=== PATIENT | female | born 1985 | race Caucasian/White ===

== ENCOUNTER → 2021-05-20 12:45 | Outpatient (CLI) | payer BC, SELFPAY ==
--- NOTE | ~2021-05-20 | MR_ITS ---
EXAMINATION: MR ankle RT wo con DATE: 05/20/2021 13:57 INDICATION: Right ankle pain. TECHNIQUE: Magnetic resonance imaging (MRI) of the right ankle was performed without intravenous cont rast. Sequences included sagittal PD-weighted FS FSE, sagittal PD-weighted FSE, coronal PD-weighted F S FSE, coronal PD-weighted FSE, axial PD-weighted FS FSE, and axial PD-weighted FSE. COMPARISON: None. FINDINGS: Medial ankle ligaments: The superficial and deep components of the deltoid ligament are normal. Lateral ankle ligaments: The anterior and posterior talofibular ligaments, calcaneofibular ligament, and anterior and posterio r tibiofibular ligaments are normal. Tendons: There is mild peroneus brevis tendinopathy. Peroneus longus tendon is normal. The anterior and medial ankle tendons are normal. There is mild insertional Achilles tendinopathy. There is an enthesophyte at the calcaneal attachment. Plantar fascia: Normal. Bones/other: Bone alignment is normal. No fracture. The talar dome is normal. Fluid: There is a small ankle joint effusion. There is fat stranding in Kager fat pad. IMPRESSION: 1. Mild insertional Achilles tendinopathy. 2. Fat stranding in Kager fat pad, consistent with inflammation. 3. Small ankle joint effusion. Reviewed, dictated and finalized at location A. UP OPERATOR
== END ==
PROVIDERS: PCP Physician Assistant Medical; Visit Provider Orthopaedic Surgery
DX: M25.471 Effusion, right ankle (principal); M76.61 Achilles tendinitis, right leg
CPT/HCPCS: 73721

== ENCOUNTER 2021-07-01 13:00 | Outpatient (RCR) | payer BC, SELFPAY ==
--- NOTE | 2021-05-27 16:42 | PTOPEVAL ---
INITIAL PHYSICAL THERAPY EVALUATION and PLAN OF CARE Thank you for referring Renetta Horner to [facility].? Renetta is scheduled to be seen for physical therapy? 1-2x/week for 6 weeks. Please review, sign, date and return this plan of care GLENIS. I agree with and certify that the following plan of care is medically necessary. Referring Physician Date Admitting Provider: Attending Provider: Dickson Moran MD Referring Provider: *PT Outpatient Evaluation Start: 05/27/21 13:40 Freq: Status: Active Protocol: Document 05/27/21 13:40 IVETTE (Rec: 05/27/21 15:13 IVETTE [id number]) Therapy Assessment Status Assessment Status Assessment Status Evaluation Outpatient Past Medical History Past Medical History Source of Past Medical History Patient Musculoskeletal History Hx Other Musculoskeletal Disorders Yes: R hip acetabulum micro tears, off/on R hip pain Evaluation Information Problem Diagnosis enthesopathy of right foot and ankle Onset October 2020 Subjective Information Running on treadmill - new Query Text:As Reported By Patient/ shoes - increase R posterior Family foot/heel pain - unable to put foot flat, walked with R foot mild plantarflexion and hip ER. Did see Dr. Pinto - went to [place] for PT - received ultrasound, graston technique and exercises. February - cortisone shot - helped for 2 months - but pain has returned . Running shoes - prior to injury wore [employer] - switched to [employer] when running on treadmill. Running 2 miles - tried to speed up pace did 6 days in a row - only varied speed from 6-7-mph . 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 Chiro - used laser - mainly in calf/ Achilles' tendon Diagnostic Tests X-Rays For This Problem Yes MRI For This Problem Yes Prior Level of Function Medications Home Meds (Include: OTC, RX, Vitami
--- NOTE | 2021-07-09 15:38 | PCPTNOTE ---
Admitting Provider: Attending Provider: Dickson Moran MD Patient:Renetta Horner Date of :1985 07/01/21 PHYSICAL THERAPY DISCHARGE SUMMARY Renetta has been seen for 9 PT visits since initial evaluation. She has reported an improvement in her overall heel pain since starting PT services. She does report calf and lateral ankle pain at times, along peroneal muscles, but reports that it is not as uncomfortable as it was. She reports that she has wedges in her shoes which have made a difference in her heel pain and she has been working out more without increased heel pain. She does demonstrate some lateral calf tightness and was educated on different activities to do in order to assist with decreasing the tightness. She was invited to call with any questions/concerns regarding HEP. The goals have been met and pt is being discharged from skilled PT at this time. Thank you for referring this patient to [facility]. Please review, sign, date and return this discharge summary GLENIS. I have been updated about the patient's current status and I agree with discharge from the above service at this time. Referring Physician Date
== END 2021-07-20 13:35 | disposition home or self-care (01) ==
LOC: ANHHIPT 13:00
PROVIDERS: PCP Physician Assistant Medical; Visit Provider Orthopaedic Surgery
DX: M77.51 Other enthesopathy of right foot and ankle (principal)
CPT/HCPCS: 97110; 97140; 97162